=== PATIENT | female | born 1955 | race American Indian/Alaskan Native ===

== ENCOUNTER 2017-10-01 09:16 | Outpatient (CLI) | payer OTHER ==
--- NOTE | 2017-10-07 10:49 | Mammography Report ---
BILATERAL DIGITAL SCREENING MAMMOGRAM with CAD: 10/01/17 09:16:00 CLINICAL: Routine screening. COMPARISON:08/20/11 FINDINGS: There are bilateral scattered fibroglandular densities. Asymmetric fibroglandular densities in the upper-outer left breast require additional imaging. This area has a slightly different appearance on this exam with rounded margin on the CC view.No architectural distortion or suspicious calcifications.The right breast is negative. IMPRESSION: Left outer asymmetry requiring further workup. BI-RADS CATEGORY: 0 -- Additional Imaging Evaluation Required RECOMMENDATION: Recall for left spot magnification MLO and CC views and left breast ultrasound if needed. ACR BI-RADS MAMMOGRAPHIC CODES: 0 = Needs additional imaging evaluation; 1 = Negative; 2 = Benign; 3 = Probably benign; 4 = Suspicious; 5 = Malignant; 6 = Known biopsy-proven malignancy COMMENT: 1. Dense breast tissue, i.e., adenosis, fibrocystic changes, etc., may obscure an underlying neoplasm. 2. Approximately 10% of cancers are not detected with mammography. 3. A negative mammography report should not delay biopsy if a clinically suspicious mass is present. COMMENT: Patient follow-up letters are generated via our [employer] application.
== END 2017-10-01 09:17 | disposition home or self-care (01) ==
LOC: SPVWC 09:16
PROVIDERS: ATTEND Internal Medicine
DX: Z12.31 Encounter for screening mammogram for malignant neoplasm of breast (principal); N64.89 Other specified disorders of breast
CPT/HCPCS: 77067

== ENCOUNTER 2017-10-20 09:23 | Outpatient (CLI) | payer OTHER ==
--- NOTE | 2017-10-20 09:58 | Mammography Report ---
LEFT DIGITAL DIAGNOSTIC MAMMOGRAM : 10/20/17 09:23:00 CLINICAL: Recalled for asymmetry. COMPARISON:10/01/17 screening FINDINGS: Additional mammographic views were performed and are negative. IMPRESSION: Negative Mammogram. BI-RADS CATEGORY: 1 -- Negative RECOMMENDATION: Routine mammographic screening in one year. ACR BI-RADS MAMMOGRAPHIC CODES: 0 = Needs additional imaging evaluation; 1 = Negative; 2 = Benign; 3 = Probably benign; 4 = Suspicious; 5 = Malignant; 6 = Known biopsy-proven malignancy COMMENT: 1. Dense breast tissue, i.e., adenosis, fibrocystic changes, etc., may obscure an underlying neoplasm. 2. Approximately 10% of cancers are not detected with mammography. 3. A negative mammography report should not delay biopsy if a clinically suspicious mass is present. COMMENT: Patient follow-up letters are generated via our [employer] application.
== END 2017-10-20 09:24 | disposition home or self-care (01) ==
LOC: SPVWC 09:23
PROVIDERS: ATTEND Internal Medicine
DX: R92.8 Other abnormal and inconclusive findings on diagnostic imaging of breast (principal)

== ENCOUNTER 2021-07-20 21:09 | Emergency (ER) | payer MEDICAID, MEDICARE, OTHER ==
[2021-07-20] MEDS ORDERED: IBUPROFEN 600 MG TAB PO ONE (21:20)
--- NOTE | 2021-07-20 22:19 | XRay Report ---
CHEST 2 VIEWS INDICATION / CLINICAL INFORMATION: COUGH. COMPARISON: None available. FINDINGS: SUPPORT DEVICES: None. HEART / MEDIASTINUM: No significant abnormality. LUNGS / PLEURA: Very small pulmonary opacities projecting within the right midlung, identified on the PA view only. This could represent a very small area of pneumonia, less likely pulmonary mass. The r emainder of the lungs are clear. No pleural effusion. No pneumothorax. ADDITIONAL FINDINGS: No significant additional findings. IMPRESSION: 1. Small pulmonary opacity present in the right midlung. This is most likely pneumonia. However, as I cannot entirely exclude a pulmonary mass, recommend short-term follow-up chest radiograph to ensure clearance following medical therapy. Signer Name: Macey Alejandra MD Signed: 07/20/2021 10:14 PM Workstation Name: [id number]
[2021-07-20] MEDS ORDERED: PENICILLIN G BENZATHINE 1.2 MILLION UNIT/2 ML INJ IM STA (23:55)
--- NOTE | 2021-07-21 00:14 | Emergency Department Report ---
ED General Adult HPI - General Chief complaint: Fever Stated complaint: CHEST PAIN/SORE THROAT VOMITING Time Seen by Provider: 07/20/21 23:05 Source: patient Mode of arrival: Ambulatory Limitations: No Limitations - History of Present Illness Initial comments: 65-year-old female presents emerged department with cough congestion for the last 3 days associated with occasional vomiting myalgias, fatigue and occasional chest pain. No hemoptysis symptoms hematochezia, no diarrhea, no constipation, no wheezing Patient -: Gradual Severity scale (0 -10): 0 Consistency: constant Improves with: none Worsens with: none Associated Symptoms: denies: confusion, diaphoresis, fever/chills, loss of appetite, malaise, nausea/vomiting, rash, shortness of breath, syncope, weakness - Related Data Previous Rx's Medication Instructions Recorded Last Taken Type Albuterol Mdi (or & Nicu Only) 2 puff IH QID PRN #1 inhalation 07/20/21 Unknown Rx [ProAir HFA Inhaler] Azithromycin [Zithromax] 500 mg PO QDAY #5 tablet 07/20/21 Unknown Rx Azithromycin [Zithromax] 500 mg PO QDAY #5 tablet 07/21/21 Unknown Rx predniSONE [Deltasone] 20 mg PO QDAY #5 tab 07/21/21 Unknown Rx Allergies Allergy/AdvReac Type Severity Reaction Status Date / Time No Known Allergies Allergy Verified 07/20/21 21:15 ED Review of Systems ROS: Stated complaint: CHEST PAIN/SORE THROAT VOMITING Other details as noted in HPI Comment: All other systems reviewed and negative ED Past Medical Hx - Medications Home Medications: Home Medications Medication Instructions Recorded Confirmed Last Taken Type Albuterol Mdi (or & Nicu Only) 2 puff IH QID PRN #1 inhalation 07/20/21 Unknown Rx [ProAir HFA Inhaler] Azithromycin [Zithromax] 500 mg PO QDAY #5 tablet 07/20/21 Unknown Rx Azithromycin [Zithromax] 500 mg PO QDAY #5 tablet 07/21/21 Unknown Rx predniSONE [Deltasone] 20 mg PO QDAY #5 tab 07/21/21 Unknown Rx ED Physical Exam - General Limitations: No Limitations General appearance: alert, in no apparent distress - Head Head exam: Present: atraumatic, normocephalic - Eye Eye exam: Present: normal appearance, PERRL, EOMI Pupils: Present: normal accommodation - ENT ENT exam: Present: normal exam, normal orophraynx, mucous membranes moist, TM's normal bilaterally, other (Pharynx has some erythema with no exudate. Tongue and uvula midline) - Neck Neck exam: Present: normal inspection, full ROM - Respiratory Respiratory exam: Present: normal lung sounds bilaterally, rhonchi, decreased breath sounds. Absent: respiratory distress, wheezes, rales - Cardiovascular Cardiovascular Exam: Present: regular rate, normal rhythm. Absent: systolic murmur, diastolic murmur, rubs, gallop - GI/Abdominal GI/Abdominal exam: Present: soft, normal bowel sounds. Absent: tenderness, guarding - Extremities Exam Extremities exam: Present: normal inspection - Back Exam Back exam: Present: normal inspection. Absent: CVA tenderness (R), CVA tenderness (L) - Neurological Exam Neurological exam: Present: alert, oriented X3, CN II-XII intact - Psychiatric Psychiatric exam: Present: normal affect, normal mood. Absent: manic - Skin Skin exam: Present: warm, dry, intact, normal color. Absent: rash, erythema, urticaria, pallor, abrasion ED Course Vital Signs 07/20/21 07/21/21 21:17 00:38 Temperature 103.0 F H 99.3 F Pulse Rate 113 H 92 H Respiratory 20 14 Rate Blood Pressure 168/91 Blood Pressure 133/80 [Right] O2 Sat by Pulse 96 96 Oximetry ED Medical Decision Making - Radiology Data Radiology results: report reviewed [facility] [address] [place] [address] XRay Report Signed Patient: JENNIFER AMARO MR#: [id number] : 1955 Acct:[id number] Age/Sex: 65 / F ADM Date: 07/20/21 Loc: ED Attending Dr: Ordering Physician: NICOLAS ESPAÑA MD Date of Service: 07/20/21 Procedure(s): XR chest routine 2V Accession Number(s): [id number] cc: ED MD PATRIA Fluoro Time In Minutes: CHEST 2 VIEWS INDICATION / CLINICAL INFORMATION: COUGH. COMPARISON: None available. FINDINGS: SUPPORT DEVICES: None. HEART / MEDIASTINUM: No significant abnormality. LUNGS / PLEURA: Very small pulmonary opacities projecting within the right midlung, identified on the PA view only. This could represent a very small area of pneumonia, less likely pulmonary mass. The remainder of the lungs are clear. No pleural effusion. No pneumothorax. ADDITIONAL FINDINGS: No significant additional findings. IMPRESSION: 1. Small pulmonary opacity present in the right midlung. This is most likely pneumonia. However, as I cannot entirely exclude a pulmonary mass, recommend short-term follow-up chest radiograph to ensure clearance following medical therapy. Signer Name: Macey Alejandra MD Signed: 07/20/2021 10:14 PM Workstation Name: [id number] Transcribed By: Dictated By: Macey Alejandra MD Electronically Authenticated By: Macey Alejandra MD Signed Date/Time: 07/20/212213 DD/ 12 TD/TT: - Medical Decision Making This patient presents with acute cough, most consistent with right middle lobe pneumonia. Differential diagnosis includes COPD, asthma, bronchitis, allergies, GERD. Presentation consistent with acute bacterial pneumonia but has been stable due to the ability to maintain normal saturations with ambulation. Right middle lobe found on the x-ray results in conjunction with her history physical examination and management of treated: With antibiotics for his emergency department and discharged home on the appropriate medication cocktail. Presentation not consistent with chronic causes of cough (including GERD, asthma, postnasal discharge, medication side effect, CHF, lung cancer or mass). Plan: supportive care, reassess Critical care attestation.: If time is entered above; I have spent that time in minutes in the direct care of this critically ill patient, excluding procedure time. ED Disposition Clinical Impression: Right middle lobe pneumonia, Pharyngitis Disposition: 01 HOME / SELF CARE / HOMELESS Is pt being admited?: No Does the pt Need Aspirin: No Condition: Stable Instructions: Pharyngitis, Sore Throat, Community-Acquired Pneumonia, Adult, Bacterial Pneumonia (ED) Prescriptions: predniSONE [Deltasone] 20 mg PO QDAY #5 tab Albuterol Mdi (or & Nicu Only) [ProAir HFA Inhaler] 2 puff IH QID PRN #1 inhalation PRN Reason: Shortness Of Breath Azithromycin [Zithromax] 500 mg PO QDAY #5 tablet Azithromycin [Zithromax] 500 mg PO QDAY #5 tablet Referrals: SHARON BARFIELD MD [Staff Physician] - 3-5 Days Forms: Work/School Release Form(ED)
[2021-07-21 00:39] VITALS: BP 133/80
== END 2021-07-21 01:34 | disposition home or self-care (01) ==
LOC: ED 21:09
DX: J18.1 Lobar pneumonia, unspecified organism (principal); J02.9 Acute pharyngitis, unspecified
CPT/HCPCS: 71046; 96372; 99283; J0561